=== PATIENT | female | born 1975 | race Caucasian/White ===

== ENCOUNTER 2017-09-17 18:26 | Emergency (ER) | payer SELFPAY ==
[~2017-09-17] VITALS: Ht 172.7 cm; Wt 83.1 kg
[2017-09-17] MEDS ORDERED: SODIUM CHLORIDE 0.9% 1,000 ML IV ONE (19:06)
[2017-09-17] MEDS ORDERED: ONDANSETRON HCL 4MG/2ML VIAL IV ONE (19:15)
[2017-09-17 19:52] LABS: BASOPHILS % 0.7 % (0.0-2.0); EOSINOPHILS % 2.7 % (0.0-5.0); HEMATOCRIT. 36.1 % (36.0-48.0); HEMOGLOBIN. 12.3 g/dL (12.0-16.0); LYMPHOCYTES % 36.4 % (20.0-50.0); MEAN CORPUSCULAR HEMOGLOBIN 28.5 pg (28.0-32.0); MEAN CORPUSCULAR VOLUME 83.4 fL (81.0-99.0); MEAN PLATELET VOLUME 7.8 fl (7.4-10.4); MONOCYTES % 13.6 % (2.0-8.0); NEUTROPHILS % 46.6 % (40.0-76.0); PLATELET 395 x1000/uL (130-400); RED BLOOD CELL COUNT 4.33 mill/uL (4.2-5.4); RED CELL DISTRIBUTION WIDTH 14.4 % (11.6-14.6)
[2017-09-17 19:58] LABS: CHLORIDE 107 mEq/L (98-107)
[2017-09-17 20:01] LABS: INR 1.1; PROTHROMBIN TIME 10.9 sec (9.4-11.6)
[2017-09-17 20:25] LABS: CLARITY URINE CLOUDY (CLEAR); COLOR URINE YELLOW (YELLOW); KETONES URINE NEGATIVE (NEGATIVE); LEUKOCYTE ESTERASE URINE NEGATIVE (NEGATIVE); NITRITE URINE NEGATIVE (NEGATIVE); OCCULT BLOOD URINE 1+ (NEGATIVE); PROTEIN URINE NEGATIVE (NEGATIVE); SPECIFIC GRAVITY URINE 1.009 (1.005-1.030); UROBILINOGEN URINE 0.2 E.U./dL (0.2-1.0)
[2017-09-17 22:04] VITALS: BP 135/66
== END 2017-09-17 23:00 | disposition home or self-care (01) ==
LOC: ER 23:00
DX: R19.7 Diarrhea, unspecified (principal); R11.0 Nausea; E03.9 Hypothyroidism, unspecified; F32.9 Major depressive disorder, single episode, unspecified
CPT/HCPCS: 36415; 80053; 81003; 83690; 85025; 85610; 96361; 96374; 99284; J2405; J7030

== ENCOUNTER 2023-10-14 17:56 | Emergency (ER) | payer BC, MEDICAID ==
[~2023-10-14] VITALS: Ht 175.3 cm; Wt 91.0 kg
[2023-10-14 18:35] VITALS: BP 144/90; PULSE 96; RESP 18; TEMP 98.1; O2SAT 97
== END 2023-10-14 18:29 | disposition home or self-care (01) ==
LOC: ER 17:56
DX: S93.509A Unspecified sprain of unspecified toe(s), initial encounter (principal); F32.A Depression, unspecified; Z86.39 Personal history of other endocrine, nutritional and metabolic disease; X58.XXXA Exposure to other specified factors, initial encounter; Y93.01 Activity, walking, marching and hiking; Y92.89 Other specified places as the place of occurrence of the external cause; Y99.8 Other external cause status
CPT/HCPCS: 73630; 82962; 99283